=== PATIENT | male | born 1970 | race Caucasian/White ===

== ENCOUNTER 2020-05-25 09:04 | Day surgery (SDC) | payer OTHER ==
[~2020-05-25] VITALS: Ht 175.3 cm; Wt 76.0 kg
[2020-05-25 09:34] VITALS: BP 166/98
[2020-05-25] MEDS ORDERED: CHLORHEXIDINE 15 ML UDC MM STA (09:37)
[2020-05-25] MEDS ORDERED: LISI-170 PO (09:45)
[2020-05-25] MEDS ORDERED: DEXAMETHASONE 4 MG/ML, 1ML ONE (09:58)
[2020-05-25] MEDS ORDERED: GLYCOPYRROLATE 0.2MG/1ML, 5ML ONE (09:58)
[2020-05-25] MEDS ORDERED: PROPOFOL 10 MG/ML, 20ML ONE (09:58)
[2020-05-25] MEDS ORDERED: LIDOCAINE-MPF 2% ,5ML ONE (09:58)
[2020-05-25] MEDS ORDERED: MIDAZOLAM 1 MG/ML, 2ML ONE (09:58)
[2020-05-25] MEDS ORDERED: FENTANYL PF 100 MCG/2ML ONE (09:58)
[2020-05-25] MEDS ORDERED: LACTATED RINGERS 1,000 ML IV SCH (10:00)
[2020-05-25] MEDS ORDERED: EPHEDRINE 50 MG/ML, 1ML ONE (10:35)
[2020-05-25] MEDS ORDERED: LABETALOL 5MG/ML, 20ML IV PRN (11:30)
[2020-05-25] MEDS ORDERED: DIPHENHYDRAMINE 50 MG/ML, 1ML IVPush PRN (11:30)
[2020-05-25] MEDS ORDERED: ALBUTEROL/IPRATROPIUM 2.5MG/0.5MG, 3 ML NPPB PRN (11:30)
[2020-05-25] MEDS ORDERED: METHOCARBAMOL 1,000 MG in DEXTROSE 5% 100 ML IV PRN (11:30)
[2020-05-25] MEDS ORDERED: ONDANSETRON 2MG/ML, 2ML IVPush PRN (11:30)
[2020-05-25] MEDS ORDERED: EPHEDRINE 50 MG/ML, 1ML IM PRN (11:30)
[2020-05-25] MEDS ORDERED: KETOROLAC 30 MG/1 ML IVPush PRN (11:30)
[2020-05-25] MEDS ORDERED: LORazepam 2 MG/ML, 1ML IVPush PRN (11:30)
[2020-05-25] MEDS ORDERED: HALOPERIDOL 5 MG/ML IV PRN (11:30)
[2020-05-25] MEDS ORDERED: OXYcodone 5 MG/5 ML ORAL.SOL UDC PO PRN (11:30)
[2020-05-25] MEDS ORDERED: METOCLOPRAMIDE 5 MG/ML, 2ML IVPush PRN (11:30)
[2020-05-25] MEDS ORDERED: HYDROcodone/APAP 7.5-325MG/15ML UDC PO PRN (11:30)
[2020-05-25] MEDS ORDERED: MIDAZOLAM 1 MG/ML, 2ML IV PRN (11:30)
[2020-05-25] MEDS ORDERED: MEPERIDINE/PF 25MG/0.5ML IVPush PRN (11:30)
[2020-05-25] MEDS ORDERED: DIAZEPAM 5 MG/ML, 2ML IVPush PRN (11:30)
[2020-05-25] MEDS ORDERED: hydrALAzine 20 MG/ML, 1ML IV PRN (11:30)
[2020-05-25] MEDS ORDERED: FENTANYL PF 100 MCG/2ML IV PRN (11:30)
[2020-05-25] MEDS ORDERED: EPHEDRINE 50 MG/ML, 1ML IVPush PRN (11:30)
[2020-05-25] MEDS ORDERED: HYDROmorphone 1 MG/ML, 1ML INJ IVPush PRN (11:30)
== END 2020-05-25 12:15 | disposition home or self-care (01) ==
LOC: OUT 09:04
PROVIDERS: ATTEND Internal Medicine Gastroenterology
DX: D37.4 Neoplasm of uncertain behavior of colon (principal); K63.5 Polyp of colon; K64.8 Other hemorrhoids; I10 Essential (primary) hypertension; Z79.899 Other long term (current) drug therapy; Z72.89 Other problems related to lifestyle; Z20.828 Contact with and (suspected) exposure to other viral communicable diseases; Z98.890 Other specified postprocedural states
CPT/HCPCS: 36415; 45391; 87635; 88305; A4648; J1100; J2250; J2704; J3010; J7120